=== PATIENT | female | born 1960 | race Caucasian/White ===

== ENCOUNTER 2020-07-19 05:17 | Observation (INO) ==
--- NOTE | 2020-06-28 15:50 | PAT Medication Instructions ---
Medication Instructions Date of Service June 28, 2020 Home Medications aspirin 81 mg tablet,delayed release 81 mg PO QAM atorvastatin 10 mg tablet 10 mg PO QAM omeprazole 40 mg capsule,delayed release 40 mg PO QAM venlafaxine 150 mg capsule,extended release 24 hr 150 mg PO QAM albuterol sulfate [ProAir HFA] 2 puff INHALATION 6XD PRN fluticasone propion-salmeterol [Advair Diskus] 1 inh INHALATION BID lisinopril-hydrochlorothiazide 2 tab PO QAM DO NOT take the morning of surgery lisinopril-hydrochlorothiazide 2 tab PO QAM Take morning of surgery With a small sip of water, OTHERWISE NOTHING TO EAT OR DRINK AFTER MIDNIGHT: aspirin 81 mg tablet,delayed release 81 mg PO QAM atorvastatin 10 mg tablet 10 mg PO QAM omeprazole 40 mg capsule,delayed release 40 mg PO QAM venlafaxine 150 mg capsule,extended release 24 hr 150 mg PO QAM albuterol sulfate [ProAir HFA] 2 puff INHALATION 6XD PRN (if needed) fluticasone propion-salmeterol [Advair Diskus] 1 inh INHALATION BID Take evening before surgery albuterol sulfate [ProAir HFA] 2 puff INHALATION 6XD PRN (if needed) fluticasone propion-salmeterol [Advair Diskus] 1 inh INHALATION BID Other Notes If you have any questions please call us at [phone] or [phone] or [phone] or [phone]
--- NOTE | 2020-07-01 13:06 | Anesthesiology Consultation ---
Date of Service July 01, 2020 Assessment & Plan (1) Encounter for pre-operative examination: COVID Status: As of 07/01 assessment, patient denies travel to endemic area, known exposure/sick contacts, or symptoms of COVID19. Patient instructed that they and their household members must follow strict social distancing guidelines, wear a mask in public and avoid travel/events/gatherings for 14 days prior to surgery. Preoperative COVID19 testing to be completed prior to surgery per surgeon's arrangements (07/13). Patient made aware to self-isolate as much as possible between COVID testing and surgery. Spoke to Jason in Blood Bank re: this patient's rare antibodies. Patient will need to return for additional blood to be drawn for further workup/identification of antibodies, and will also need to have type and cross x 2 performed the day before her surgery to allow for additional time. Dr. Cleveland, head of pathology, would also like to consult with Dr. Webb regarding this patient (Monica at Dr. Webb's office notified and given contact info for Dr Cleveland). 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 Lab order faxed to blood bank and [facility] system. Chart Review Chart Review: Acceptable Risk for Surgery (pending further blood bank workup) and Patient seen in Pre Admission Testing Teaching & Discussion Instructed NPO after midnight before surgery, except medications with 15 cc of water. Medication instructions provided according to the PAT guidelines. History Surgery Operation Date: 07/19/20 12:30 Proposed Procedures p Right Total Hip Arthroplasty - Glenn Webb MD Height/Weight Height: 5 ft 2.5 in Weight: 125.8 kg Allergies Allergy/AdvReac Type Severity Reaction Status Date / Time No Known Allergies Allergy Verified 06/28/20 10:10 Medications Home Medications Medication Instructions Recorded Confirmed Last Taken aspirin 81 mg tablet,delayed 81 mg PO QAM 06/23/20 06/28/20 Unknown release atorvastatin 10 mg tablet 10 mg PO QAM 06/23/20 06/28/20 Unknown omeprazole 40 mg capsule,delayed 40 mg PO QAM 06/23/20 06/28/20 Unknown release venlafaxine 150 mg 150 mg PO QAM 06/23/20 06/28/20 Unknown capsule,extended release 24 hr albuterol sulfate [ProAir HFA] 2 puff INHALATION 6XD PRN 06/28/20 06/28/20 Unknown fluticasone propion-salmeterol 1 inh INHALATION BID 06/28/20 06/28/20 Unknown [Advair Diskus] lisinopril-hydrochlorothiazide 2 tab PO QAM 06/28/20 06/28/20 Unknown Past Medical History Medical History Asthma Does not even use Advair daily, very rare albuterol, only in high humidity. Chronic obstructive pulmonary disease Degenerative joint disease of right hip GERD (gastroesophageal reflux disease) Hiatal hernia Hyperlipidemia Hypertension Morbid obesity Temporomandibular joint disorder Left side grinding, no locking Exercise / Class Metabolic Activity III < 4 Walking/Shop/Light housework (Limited by hip pain, denies CP or SOB with ambulation) Past Family History Family History Mother Family history of diabetes mellitus BORDERLINE Father Family history of diabetes mellitus BORDERLINE Past Surgical History Surgical History H/O wrist surgery Left x2 History of appendectomy History of bilateral tubal ligation History of carpal tunnel release R/L History of cholecystectomy History of colonoscopy History of esophagogastroduodenoscopy (EGD) History of hysterectomy History of neck surgery Fusion History of repair of rotator cuff Right x2 Past Anesthesia History No Hx of Anesthesia Complications and No Family Hx of Anesthesia Complications (other than father having a vague issue unsure if from anesthesia) History of PONV No Hx of PONV and No Hx of Motion Sickness Social History Smoking Status: Current every day smoker tobacco type: e-cigarettes Smoking cigarettes per day: VAPES OFF AND ON DAILY Do You Dip or Chew Tobacco: No Hx Alcohol Use: No Hx Substance Use: No Review of Systems Pt denies any recent chest pain, shortness of breath, palpitations, cough, fever, URI, or uncontrolled acid reflux (controlled with med). Physical Exam Vital Signs BP: 136/84 P: 89bpm SPO2: 96% RA T: 98.4 F R: 16 Constitutional + morbidly obese ENMT Mouth: + dentures, + edentulous and + macroglossia Thyromental Distance: > or= 3.5 Finger Breadths Mallampati Class: III Neck + short neck, + thick neck and + limited neck extension Respiratory normal respiratory effort, lungs clear to auscultation Auscultation: + diminished lung sounds (B/L) Cardiovascular Distant heart sounds. Testing Laboratory Results 07/01/20 13:24 07/01/20 13:24 PT 9.8 Seconds (9.0-12.0) 07/01/20 13:24 INR 1.0 (0.9-1.1) 07/01/20 13:24 APTT 26.5 Seconds (21.0-31.0) 07/01/20 13:24 Blood Type O Positive 07/01/20 13:24 Antibody Screen POSITIVE A 07/01/20 13:24 Spoke to Jason in blood bank regarding these rare antibodies. Patient will need follow-up in order to obtain compatible blood products. Electrocardiogram Date: 07/01/20 Findings: + NSR @ (86bpm) Chest X-Ray Date: 07/01/20 FINDINGS: PA and lateral chest radiographs are obtained. No prior studies are available for comparison at the time of dictation. There are calcified mediastinal and hilar lymph nodes. The cardiomediastinal silhouette is unremarkable noting atherosclerotic calcification of the thoracic aorta. The lungs and pleural spaces are clear. There is no pneumothorax. The skeletal structures are osteopenic. The bony thorax appears intact. Fusion hardware is noted in the lower cervical spine. Degenerative change is noted throughout the thoracic spine. Cholecystectomy clips are seen in the upper abdomen. IMPRESSION: No active disease in the chest.
--- NOTE | 2020-07-01 13:48 | XRay Report ---
TWO VIEW CHEST CLINICAL HISTORY: Preoperative examination. History of asthma, COPD, and hypertension. FINDINGS: PA and lateral chest radiographs are obtained. No prior studies are available for compariso n at the time of dictation. There are calcified mediastinal and hilar lymph nodes. The cardiomediasti nal silhouette is unremarkable noting atherosclerotic calcification of the thoracic aorta. The lungs and pleural spaces are clear. There is no pneumothorax. The skeletal structures are osteopenic. The bony thorax appears intact. Fusion hardware is noted in the lower cervical spine. Degenerative change is noted throughout the thoracic spine. Cholecystectomy clips are seen in the upper abdomen. IMPRESSION: No active disease in the chest. ACT 112: Negative or not required by law. Electronically signed by: Ron Jain M.D. 07/01/2020 1:47 PM
[2020-07-01 13:55] LABS: Basophils # (auto) 0.01 K/uL (0-0.2); Basophils % (auto) 0.1 %; Eosinophils # (auto) 0.16 K/uL (0-0.5); Eosinophils % (auto) 1.8 %; Hematocrit (blood only) 40.5 % (37-47); Hemoglobin 13.7 g/dL (12.0-16.0); Immature Granulocytes # (auto) 0.01 K/uL (0.00-0.02); Immature Granulocytes % (auto) 0.1 %; Lymphocytes # (auto) 2.41 K/uL (1.2-3.4); Lymphocytes % (auto) 26.5 %; Mean Corpuscular Hemoglobin 29.9 pg (25-34); Mean Corpuscular Hgb Conc 33.8 g/dL (32-36); Mean Corpuscular Volume 88.4 fL (80-100); Monocytes # (auto) 0.54 K/uL (0.11-0.59); Monocytes % (auto) 5.9 %; Neutrophils # (auto) 5.95 K/uL (1.4-6.5); Neutrophils % (auto) 65.6 %; Platelet Count 220 K/uL (130-400); RDW Coefficient of Variation 13.9 % (11.5-14.5); RDW Standard Deviation 45.4 fL (36.4-46.3); Red Blood Count 4.58 M/uL (4.2-5.4); White Blood Count 9.08 K/uL (4.8-10.8)
[2020-07-01 14:06] LABS: Partial Thromboplastin Time 26.5 Seconds (21.0-31.0); Prothrombin Time 9.8 Seconds (9.0-12.0)
[2020-07-01 14:08] LABS: BUN Creatinine Ratio 16.8 (10-20); Calcium 9.4 mg/dl (8.5-10.1); Creatinine Clr Calc Pharmacy 88.1 ml/min; Est GFR (African American) 83.4; Est GFR (Non-African American) 71.9; Potassium 4.4 mmol/L (3.5-5.1)
[2020-07-01 14:12] LABS: C Reactive Protein 0.79 mg/dl (0-0.29)
--- NOTE | 2020-07-02 06:42 | Electrocardiogram Report ---
Test Reason : Blood Pressure : / mmHG Vent. Rate : 086 BPM Atrial Rate : 086 BPM P-R Int : 190 ms QRS Dur : 070 ms QT Int : 370 ms P-R-T Axes : 078 076 074 degrees QTc Int : 442 ms Normal sinus rhythm Normal ECG No previous ECGs available Confirmed by Steve Zuñiga ([id number]) on 07/02/2020 6:41:38 AM Referred By: Glenn Webb Confirmed By:Steve Zuñiga
[2020-07-19] MEDS ORDERED: ACETAMINOPHEN 500 MG TAB PO SCH (06:00)
[2020-07-19] MEDS ORDERED: LR 60ML/HR IV SCH (06:00)
[2020-07-19] MEDS ORDERED: GABAPENTIN 600 MG DOSE PO SCH (06:00)
[2020-07-19] MEDS ORDERED: METOCLOPRAMIDE HCL 10 MG TABLET PO SCH (06:00)
[2020-07-19] MEDS ORDERED: Scopolamine 1 MG TDSY TD SCH (06:00)
[2020-07-19] MEDS ORDERED: LR 500ML BOLUS, THEN 15ML/HR IV SCH (06:00)
[2020-07-19] MEDS ORDERED: TRANEXAMIC ACID 1,000 MG **IV Pre-op IV SCH (06:00)
[2020-07-19] MEDS ORDERED: BUPIVACAINE 0.5 % 5 MG/1 ML PF 10ML VIAL ONE (06:25)
[2020-07-19] MEDS ORDERED: MIDAZOLAM HCL 1 MG/ML 2ML VIAL ONE ×2 (06:28→07:14)
[2020-07-19] MEDS ORDERED: fentaNYL citrate 100 MCG/2 ML VIAL ONE (06:28)
[2020-07-19] MEDS ORDERED: MoRPHine SULFATE PF 1 MG/ML 10 ML AMP/VIAL ONE (06:29)
[2020-07-19] MEDS ORDERED: BUPIVACAINE/EPINEPHRINE 0.5% MPF 1:200,000 30 ML VIAL ONE (06:32)
[2020-07-19] MEDS ORDERED: NALOXONE HCL 1 MG in SODIUM CHLORIDE 0.9% 1000ML 1,000 ML IV PRN (06:34)
[2020-07-19] MEDS ORDERED: ONDANSETRON INJ 2 MG/ML 2 ML VIAL IV PRN ×2 (06:34→11:03)
[2020-07-19] MEDS ORDERED: ePHEDrine sulfate 50 MG/ML AMP IV PRN (06:34)
[2020-07-19] MEDS ORDERED: NALOXONE HCL 0.08 MG in SYRINGE 1.8 ML IV PRN (06:34)
[2020-07-19] MEDS ORDERED: NALOXONE HCL 0.4 MG/1 ML VIAL/CARP IV PRN ×2 (06:34→11:03)
[2020-07-19] MEDS ORDERED: PROMETHAZINE HCL 6.25 MG in SODIUM CHLORIDE 0.9% 50 ML IV PRN (06:34)
[2020-07-19] MEDS ORDERED: MoRPHine SULFATE PF 1 MG/ML 10 ML AMP/VIAL INT SPINAL ONE (06:34)
[2020-07-19] MEDS ORDERED: diphenhydrAMINE 50 MG/ML VIAL IV PRN (06:34)
[2020-07-19] MEDS ORDERED: LACTATED RINGER'S 500 ML IV PRN (06:34)
[2020-07-19] MEDS ORDERED: MoRPHine SULFATE 2 MG/ML CARP IV PRN (06:34)
[2020-07-19] MEDS ORDERED: NO NARCOTICS OR SEDATIVES SCH (06:45)
[2020-07-19] MEDS ORDERED: SODIUM CHLORIDE 0.9% 1000ML 1,000 ML IV SCH (06:45)
[2020-07-19] MEDS ORDERED: DC INTRASPINAL MORPHINE SCH (06:45)
--- NOTE | 2020-07-19 06:51 | History & Physical Bridge Note ---
Date of Service July 19, 2020 History & Physical Bridge Note I have examined the patient, reviewed the History & Physical and in the interval since the performance of the History & Physical I have noted the following changes of clinical significance: no changes noted
[2020-07-19] MEDS ORDERED: KETAMINE 50 MG/5 ML SYRINGE ONE (07:16)
[2020-07-19] MEDS ORDERED: PHENYLEPHRINE HCL 10 MG/ML VIAL ONE (07:34)
[2020-07-19] MEDS ORDERED: PHENYLEPHRINE 100MCG/ML 5ML SYR ONE (07:34)
[2020-07-19] MEDS ORDERED: ePHEDrine sulfate 50 MG/ML SYR ONE (07:35)
--- NOTE | 2020-07-19 09:07 | Operative Report ---
Post Operative Report Pre & Post Diagnosis Operation Date: 07/19/20 07:00 Pre-Op Diagnosis: Right Hip Degeneartive Joint Disease Post-Op Diagnosis: Right Hip Degeneartive Joint Disease I identified the patient and participated in the time-out.: Yes Procedure Operation Date: 07/19/20 07:00 Actual Procedures p Right Total Hip Arthroplasty, Uncemented(Right) - Glenn Webb MD Surgeon Glenn Webb MD Manifest/Order Organizer Print Orders KALI Munson Estimated Blood Loss 200 Findings Consistent with Post-Op Diagnosis Operative findings were advanced right hip DJD. 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 She had a pretty significant anterior acetabular osteophyte. Significant joint effusion as well as some synovitis. Fluids 1200 cc. Specimens Right femoral head sent for pathology. Drains None. Anesthesia Type Spinal MAC Complications none Disposition Accompanied Patient To Recovery: Yes Disposition: Recovery Room Indications Patient is a 60-year-old female has had a several year history of increasing right hip pain discomfort to the point where she has had to use a cane to get around for the past 8 months. She is failed all conservative measures. X-rays were advanced right hip DJD. She is attempted weight loss on multiple occasions and had some progress but was pretty stagnant due to her limited mobility. She was strongly desiring total hip arthroplasty. Patient is morbidly obese with a BMI of 50. She was fully aware of the increased complications as a result of her obesity. Description of Procedure Operative implants consist of: 1. Biomet G7 size 50 mm acetabular shell. 2. 6.5 cancellous acetabular screws 135 mm length 1 to 20 mm length. 3. An apex hole molded rubber goods cutter. 4. Highly cross-linked polyethylene liner with a 50 mm outer diameter, 32 mm inner diameter. 5. [place] size 10 KLA femoral stem. 6. +5/32 mm ceramic articular ball. The patient was taken to the operating, identified, and placed on the operating table supine position but all contractors were properly padded. IV antibiotics tried by anesthesia team. A spinal anesthetic had been implemented in the holding area. Cordero catheter was placed in sterile fashion. Patient then placed in the left lateral decubitus position. Axillary roll was placed. A Stulberg hip positioner was used for positioning. We did have to take some extra time to position her due to her large pannus. The right hip and leg were then prepped and draped in usual sterile fashion. A posterior lateral approach to the right hip was then performed through a curvilinear incision centered over the greater trochanter. Sharp dissection got through subcutaneous tissues down to level the IT band gluteal fascia. The subcutaneous tissue envelope was extremely thick. The IT band gluteal fascia then incised in line with the skin incision. The underlying greater bursa was excised. The piriformis and external rotators along with the posterior capsule were then released from the posterior aspect of the hip as a single layer. Great care was taken throughout the procedure protect the sciatic nerve at all times. Hip was internally rotated and dislocated. Femoral neck osteotomy cut was made with Final Cut about 12 mm above the lesser trochanter. Femoral head was removed and sent for pathology. The femur was retracted anteriorly. Attention drawn the acetabulum. The acetabulum was excised. The pulmonary fat was excised. Sequential reaming the acetabular was then performed again with size 43 and progressing up to 49. I did reamed with a 50 some. We attempted to place a 50 cup but still could not get it in so I did reamed just the entrance to the stem with a 51 reamer. A 50 mm Biomet G7 acetabular shell was then placed in about 40 degrees lateral opening and 20 degrees of anteversion. We worked hard in order to get appropriate version and opening her due to her large soft tissue envelope. The cup was then secured with two 6.5 cancellous acetabular screws. The anterior osteophyte was removed. Trial liner was placed. Attention drawn the femur. The proximal femur was entered with a cookie-cutter followed by canal finder. I then broached begin the size 8 and progressing up to 10. We got pretty good fit of 10. I then trialed the hip. The +5 articular ball seem to recreate soft tissue tension and leg length equal. The hip was fully stable full extension and external rotation flexion to 9 degrees internal rotation over [address] these implants. All trial implants were removed. An apex hole molded rubber goods cutter was placed. Highly cross-linked polyethylene liner was placed. A DePuy size 10 KLA femoral stem was impacted in position. +5/32 mm ceramic articular ball was placed. Hip was located once again found to be stable. Attention drawn toward closing. The wound was irrigated copious also pulsatile lavage solution. I did inject locally with 60 cc of half percent Marcaine with epinephrine. The posterior capsule and external rotators then repaired through drill holes in the posterior trochanter as a single layer with #2 Tycron suture. The IT band was in gluteal fascia then closed with #1 PDS suture running fashion for the subcutaneous tissues then closed with 2 layers the deep layer #2-0 Vicryl sutures in a buried interrupted fashion followed by 2-0 Vicryl suture in the subcutaneous buried interrupted fashion. The skin was then closed with skin joellen. Leg was then cleaned and dried and a sterile Prevena VAC wound VAC was then placed due to her large soft tissue envelope. The patient transferred to the recovery room in stable condition. The patient tolerated procedure well and there were no complications. Ankit Munson, my physician printing bindery assistant, was present for the entire procedure. His assistance was essential and required for appropriate patient positioning, prepping and draping, surgical exposure, performing the technical details of the operation, placement the implants, closure of the wound, and placement of the sterile bandage. I attest to the content of the Intraoperative Record and any orders documented therein. Any exceptions are noted below.
--- NOTE | 2020-07-19 10:15 | XRay Report ---
SINGLE VIEW PELVIS; SINGLE VIEW RIGHT HIP CLINICAL HISTORY: Postoperative examination. FINDINGS: An AP portable view of the hips and pelvis with a crosstable lateral portable view of the r ight hip are obtained. A bipolar right hip arthroplasty is in near-anatomic alignment. At least one c ortical lag screw transfixes the acetabular cup. No acute fracture is identified. There are expected postoperative changes overlying the right hip including skin clips, subcutaneous gas, and soft tissue swelling. Mild degenerative change is noted in the left hip. IMPRESSION: Expected postoperative findings status post right hip arthroplasty. No acute fracture is seen. ACT 112: Negative or not required by law. Electronically signed by: Ron Jain M.D. 07/19/2020 10:13 AM
[2020-07-19] MEDS ORDERED: traMADol HCL 50 MG TABLET PO PRN (11:03)
[2020-07-19] MEDS ORDERED: HYDROmorphone INJ 0.5 MG/0.5 ML SYR IV PRN (11:03)
[2020-07-19] MEDS ORDERED: MAGNESIUM HYDROXIDE SUSP 30 ML UDC PO PRN (11:03)
[2020-07-19] MEDS ORDERED: bisacodyL 10 MG SUPP PR PRN (11:03)
[2020-07-19] MEDS ORDERED: ALUMINUM/MAGNESIUM SUSP 30 ML UDC PO PRN (11:03)
[2020-07-19] MEDS ORDERED: METOCLOPRAMIDE HCL INJ 5 MG/ML 2 ML VIAL IV PRN (11:03)
[2020-07-19] MEDS ORDERED: ALBUTEROL HFA 8 GM INHALER INH PRN (11:03)
[2020-07-19] MEDS: FLUTICASONE/VILANTEROL 100/25MCG 14 PUFFS/INHALER INH SCH (11:59)
[2020-07-19] MEDS: SODIUM CHLORIDE 0.9% 1000ML 1,000 ML IV SCH ×2 (12:00→18:54)
[2020-07-19] MEDS: VENLAFAXINE HCL XR 150 MG CAPXR PO SCH (12:02)
[2020-07-19] MEDS: DOCUSATE SODIUM 100 MG CAP PO SCH ×2 (12:03→20:10)
[2020-07-19] MEDS: LISINOPRIL/HCTZ 20/12.5MG 1 TAB TAB PO SCH (12:03)
[2020-07-19] MEDS: ATORVASTATIN 10 MG TAB PO SCH (12:03)
[2020-07-19] MEDS: MULTIVITAMIN TAB PO SCH (12:04)
[2020-07-19] MEDS: PANTOprazole 40 MG TAB PO SCH (12:04)
[2020-07-19] MEDS: ASPIRIN 81 MG ECTAB PO SCH ×2 (12:04→20:10)
[2020-07-19] MEDS: KETOROLAC 30 MG/ML VIAL IV SCH ×2 (12:05→17:08)
[2020-07-19] MEDS: PROSOURCE NO CARB 30 ML/PKT PO SCH ×3 (12:50→20:11)
--- NOTE | 2020-07-19 13:42 | Progress Notes ---
DATE: 07/19/2020 SUBJECTIVE: A 60-year-old female postop from a right hip replacement. She is doing well. Not having any pain yet. No chest pain or shortness of breath. Not feeling dizzy or lightheaded. OBJECTIVE: VITAL SIGNS: Temperature 36.8. Vital signs stable. GENERAL: Shows a pleasant, middle-aged female. She is sitting up in her bed and using her phone and texting and looks completely comfortable. LUNGS: Clear to auscultation. HEART: Has a regular rate and rhythm. ABDOMEN: Soft, nontender, nondistended. EXTREMITIES: Grossly neurovascularly intact except as follows: Examination of the right hip and leg reveals the dressing to be clean, dry and intact. She has got a wound VAC in place. Her leg lengths were equal. Hip is located. She can dorsiflex and plantarflex her foot appropriately. She is neurologically intact. X-RAYS: X-rays of the right hip from recovery room are reviewed. It shows a right uncemented total hip arthroplasty. Components looked to be in good position. No signs of problems. ASSESSMENT: A 60-year-old female postoperative from right hip replacement, doing well. Hip is located. She is neurologically intact. Pain is controlled. PLAN: 1. DVT prophylaxis including thigh-high TEDs, SCDs, and aspirin twice a day. 2. PT/OT. Weight bear as tolerated. Right total hip protocol. 3. Pain control, doing okay with current pain regimen. 4. IV antibiotics x24 hours. 5. Disposition: We will plan to discharge her home with some home health once adequately recovered and medically stable.
--- NOTE | 2020-07-19 14:09 | Anesthesiology Progress Note ---
Date of Service July 19, 2020 Anesthesia Post Procedure Vital Signs Vital Signs: Temp Pulse Pulse Resp BP Pulse Ox Pulse Ox 07/19/20 13:02 36.8 C 83 18 113/69 97 07/19/20 12:52 37.0 C 89 18 99/63 L 96 07/19/20 12:06 36.4 C L 88 18 129/77 95 07/19/20 10:52 36.5 C 74 18 107/75 94 07/19/20 10:18 36.4 C L 73 18 105/67 93 07/19/20 09:50 36.5 C 84 79 20 112/72 96 96 07/19/20 09:40 36.8 C 78 16 122/58 L 95 07/19/20 09:30 36.8 C 80 14 119/55 L 95 07/19/20 09:20 36.8 C 77 15 136/72 97 07/19/20 09:10 36.8 C 78 15 105/64 99 07/19/20 09:00 85 14 101/86 100 07/19/20 08:50 36.8 C 89 18 121/74 99 07/19/20 05:39 36.8 C 83 20 135/93 97 Transfer of Care Handoff Completed per policy Notes Mental Status: alert / awake / arousable and participated in evaluation Patient Amnestic to Procedure: Yes Nausea / Vomiting: adequately controlled Pain: adequately controlled Airway Patency, RR, SpO2: stable & adequate BP & HR: stable & adequate Hydration State: stable & adequate Neuraxial Anesthesia: was administered and sensory block is resolving Anesthetic Complications: no major complications apparent and Pt Satisfied with anesthetic care
[2020-07-19] MEDS: ceFAZolin 2000MG 2,000 MG/15 ML SYR IV SCH ×2 (14:32→23:03)
[2020-07-19] MEDS: ACETAMINOPHEN 500 MG TAB PO SCH ×2 (14:32→21:48)
[2020-07-19] MEDS ORDERED: TRANEXAMIC ACID / 0.7% NACL 1,000 MG/100 ML BAG IV SCH (15:00)
[2020-07-19] MEDS: Scopolamine CHECK PATCH PLACEMENT SCH (17:07)
[2020-07-19] MEDS: FERROUS GLUCONATE 324 MG TAB PO SCH (17:08)
[2020-07-19] MEDS: ASCORBIC ACID 500 MG TAB PO SCH (17:08)
[2020-07-19] MEDS ORDERED: SENNA 8.6 MG TAB PO SCH (21:00)
[2020-07-20] MEDS: Scopolamine CHECK PATCH PLACEMENT SCH ×2 (00:17→09:12)
[2020-07-20] MEDS: KETOROLAC 30 MG/ML VIAL IV SCH ×3 (00:18→14:31)
[2020-07-20] MEDS: SODIUM CHLORIDE 0.9% 1000ML 1,000 ML IV SCH (00:18)
[2020-07-20] MEDS ORDERED: ONDANSETRON INJ 2 MG/ML 2 ML VIAL IV PRN (00:35)
[2020-07-20] MEDS ORDERED: diphenhydrAMINE Capsule 25 MG CAP PO PRN (00:35)
[2020-07-20] MEDS: ACETAMINOPHEN 500 MG TAB PO SCH ×2 (05:02→14:31)
[2020-07-20 06:55] LABS: Basophils # (auto) 0.01 K/uL (0-0.2); Basophils % (auto) 0.2 %; Eosinophils # (auto) 0.12 K/uL (0-0.5); Eosinophils % (auto) 1.8 %; Hematocrit (blood only) 29.7 % (37-47); Hemoglobin 9.8 g/dL (12.0-16.0); Immature Granulocytes # (auto) 0.02 K/uL (0.00-0.02); Immature Granulocytes % (auto) 0.3 %; Lymphocytes # (auto) 1.57 K/uL (1.2-3.4); Lymphocytes % (auto) 23.6 %; Mean Corpuscular Hemoglobin 29.4 pg (25-34); Mean Corpuscular Volume 89.2 fL (80-100); Mean Platelet Volume 9.3 fL (7.4-10.4); Monocytes # (auto) 0.58 K/uL (0.11-0.59); Monocytes % (auto) 8.7 %; Neutrophils # (auto) 4.34 K/uL (1.4-6.5); Neutrophils % (auto) 65.4 %; Platelet Count 148 K/uL (130-400); RDW Coefficient of Variation 14.1 % (11.5-14.5); RDW Standard Deviation 46.5 fL (36.4-46.3); Red Blood Count 3.33 M/uL (4.2-5.4); White Blood Count 6.64 K/uL (4.8-10.8)
[2020-07-20 07:24] LABS: BUN Creatinine Ratio 22.4 (10-20); Calcium 7.7 mg/dl (8.5-10.1); Creatinine Clr Calc Pharmacy 66.4 ml/min; Est GFR (African American) 59.1; Potassium 3.8 mmol/L (3.5-5.1)
[2020-07-20] MEDS ORDERED: dexAMETHasone 4 MG TAB PO SCH (08:00)
[2020-07-20] MEDS: ASCORBIC ACID 500 MG TAB PO SCH (09:04)
[2020-07-20] MEDS: ASPIRIN 81 MG ECTAB PO SCH (09:05)
[2020-07-20] MEDS: FERROUS GLUCONATE 324 MG TAB PO SCH (09:05)
[2020-07-20] MEDS: ATORVASTATIN 10 MG TAB PO SCH (09:05)
[2020-07-20] MEDS: MULTIVITAMIN TAB PO SCH (09:05)
[2020-07-20] MEDS: DOCUSATE SODIUM 100 MG CAP PO SCH (09:05)
[2020-07-20] MEDS: LISINOPRIL/HCTZ 20/12.5MG 1 TAB TAB PO SCH (09:05)
[2020-07-20] MEDS: FLUTICASONE/VILANTEROL 100/25MCG 14 PUFFS/INHALER INH SCH (09:06)
[2020-07-20] MEDS: VENLAFAXINE HCL XR 150 MG CAPXR PO SCH (09:06)
[2020-07-20] MEDS: PROSOURCE NO CARB 30 ML/PKT PO SCH ×2 (09:06→14:32)
[2020-07-20] MEDS: PANTOprazole 40 MG TAB PO SCH (09:06)
[2020-07-20] MEDS ORDERED: MICONAZOLE NITRATE POWDER 43 GM EXT SCH (10:00)
--- NOTE | 2020-07-20 16:11 | Progress Notes ---
DATE: 07/20/2020 SUBJECTIVE: A 60-year-old white female postop day 1 from right hip replacement. She is doing quite well. Denies any pain. She says it is just a bit sore. No chest pain or shortness of breath. Not feeling dizzy or lightheaded. OBJECTIVE: VITAL SIGNS: Temperature is 37.1. Vital signs stable. EXTREMITIES: Examination of the right hip and leg reveals the patient was getting around quite well. A Prevena VAC is in place. Thigh is soft and supple. Leg lengths are equal. Hip is located. She is neurologically intact. LABORATORY DATA: Hemoglobin is 9.8. Hematocrit 29.7. Electrolytes are stable. ASSESSMENT: A 60-year-old white female postop day 1 from right hip replacement, doing pretty well. Her pain is controlled. Hip is located. She is neurologically intact. PLAN: 1. DVT prophylaxis including thigh-high TEDs, SCDs, and aspirin twice a day. 2. PT/OT. Weight bear as tolerated. Right total hip protocol. 3. Pain control, doing okay with current pain regimen. 4. Disposition: Plan to discharge to home with some home later today.
== END 2020-07-20 17:10 | disposition home health service (06) ==
LOC: 3E 05:17 → ASU 05:17